=== PATIENT | male | born 1995 | race Caucasian/White ===

== ENCOUNTER 2019-10-11 09:01 | Emergency (ER) | payer BC, SELFPAY ==
[2019-10-11 09:02] VITALS: BP 176/120; PULSE 111; RESP 18; TEMP 36.4; O2SAT 98; BMI 39.8
--- NOTE | 2019-10-11 09:14 | ED.VIS.GEN ---
History of Present Illness Chief Complaint: Laceration Onset: Today, Hours Context: Sudden Onset Timing: Continuous Quality: Laceration tip right index finger Location: Distal ulnar volar side right index Current Severity: No pain Maximum Severity: Moderate Worsened by: Initial injury Relieved by: Not applicable Associated Symptoms: No associated symptoms Narrative: Patient is a 24-year-old [id number] male who is making a maple table. He was making the templates for the legs. He sustained laceration to the tip of his right index finger. He is right-hand dominant. Last tetanus shot years ago. He denies paresthesia, anesthesia medics. He arrived with the finger wrapped in duct tape. He denies any antibiotic allergies. Prior similar symptoms: No Recent Illness/Hospitalization: No - Past Medical History (1) No significant past medical history Status: Acute Past Medical History - Allergies and Home Meds Allergies/Adverse Reactions: Allergies No Known Allergies Allergy (Verified 10/11/19 09:04) Prior records reviewed: No Past Medical History: None Surgical History: noncontributory Lives: Alone Smoking Status: Never smoker Drugs: None Review of Systems Musculoskeletal: Denies: Myalgias, Arthralgias, Neck pain, Back pain, Swelling, Extremity Pain Skin: Reports: Wounds. Denies: Rash Neurological: Denies: Weakness, Parasthesia, Numbness Hematologic: Denies: Easy bruising, Easy bleeding Physical Exam Vital Signs/Narrative: Vital Signs Temp Pulse Resp BP Pulse Ox 10/11/19 09:02 97.6 F L 111 H 18 176/120 H 98 Inital Vital Signs reviewed: Yes General: Well nourished, Well developed, Obese, No Acute Distress Head: Normocephalic, Atraumatic Eyes: Perrl, EOMI. Negative for: Pale conjunctiva, Scleral icterus Cardiovascular: Regular rate, Regular rhythm Respiratory: No distress Extremities: Nontender, No edema, - - There is a 1 x 1 cm soft tissue avulsion of tissue the distal volar ulnar side of his right index finger. There is no involvement of the nail or nailbed. The extensor indices tendon is intact. The flexor digitorum superficialis and flexor digitorum profundus are intact. Capillary refill is normal. Sensation is normal. Skin: Normal color, Trauma. Negative for: No Trauma Neurological: Alert, Oriented x3 Psychological: Normal affect Diagnostic/Tx/Re-eval - Medical Decision Making The dressing was removed. Based on the size of the avulsed tissue this will heal by secondary intention. There is nothing to be sutured. Wound was cleansed by nursing staff and appropriate dressing was placed. Since this is a clean wound and his tetanus was 8 years ago there is no need to update his tetanus. ED Disposition - Plan for ED Patient: Disposition: Home or Assisted Living Diagnosis: Avulsion of skin of finger without complication Instructions: LACERATION, Small/superficial, Not sutured Referrals: Fabian Lowe MD [STAFF PHYSICIAN] - 5-7 Days
[2019-10-11 09:24] VITALS: RESP 15
== END 2019-10-11 09:27 | disposition home or self-care (01) ==
LOC: ED 09:26
PROVIDERS: Emergency Provider Emergency Medicine
DX: S61.210A Laceration without foreign body of right index finger without damage to nail, initial encounter (principal); E66.9 Obesity, unspecified; X58.XXXA Exposure to other specified factors, initial encounter; Y93.9 Activity, unspecified; Y92.9 Unspecified place or not applicable
CPT/HCPCS: 99282

== ENCOUNTER 2020-10-14 15:59 | Outpatient (RCR) | payer BC, SELFPAY | END 2020-12-27 23:59 | LOC: IMMUN 15:59 | PROVIDERS: Visit Provider Family Medicine | DX: Z23 Encounter for immunization (principal) | CPT/HCPCS: 0001A; 0002A; 91300 ==